=== PATIENT | female | born 1950 | race Caucasian/White ===

== ENCOUNTER → 2021-02-23 | Outpatient (CLI) | payer MEDICARE, MEDICAID ==
[~2021-02-23] MED LIST: AMLO-150 PO; ASPI81TA45 PO; ISOS30TA8 PO; ROSU20TA2 PO
[2021-02-23 12:50] LABS: ALBUMIN 3.8 g/dL (3.4-5.0); ANION GAP 6 mmol/L (5-15); CALCIUM 8.7 mg/dL (8.5-10.1); CHLORIDE 112 mmol/L (98-107)
[2021-02-23 12:53] LABS: ALANINE AMINOTRANSFERASE 30 U/L (12-78); ALKALINE PHOSPHATASE 83 U/L (45-117); BILIRUBIN,TOTAL 0.5 mg/dL (0.2-1.0); CHOL/HDL RATIO 2.6; CHOLESTEROL, TOTAL 143 mg/dL (140-239); HDL CHOL % 39 % (28-40); HDL CHOLESTEROL (DIRECT) 56 mg/dL (40-60); LDL CHOLESTEROL,CALCULATED 63 mg/dL (54-169); LDL/HDL RATIO 1.1 (0.5-3.0); TOTAL PROTEIN 7.2 g/dL (6.4-8.2); TRIGLYCERIDES 121 mg/dL (50-200); VLDL CHOLESTEROL 24 mg/dL (0-25)
== END | disposition home or self-care (01) ==
LOC: LAB 12:03
PROVIDERS: ATTEND Student in an Organized Health Care Education/Training Program
DX: I25.10 Atherosclerotic heart disease of native coronary artery without angina pectoris (principal); E78.5 Hyperlipidemia, unspecified; I10 Essential (primary) hypertension; Z86.79 Personal history of other diseases of the circulatory system
CPT/HCPCS: 36415; 80053; 80061

== ENCOUNTER → 2021-03-27 | Outpatient (CLI) | payer MEDICARE, MEDICAID | END | disposition home or self-care (01) | LOC: CVU 06:41 | PROVIDERS: ATTEND Student in an Organized Health Care Education/Training Program | DX: I08.8 Other rheumatic multiple valve diseases (principal); I25.810 Atherosclerosis of coronary artery bypass graft(s) without angina pectoris; I10 Essential (primary) hypertension; E78.00 Pure hypercholesterolemia, unspecified; Z95.1 Presence of aortocoronary bypass graft | CPT/HCPCS: 93306 ==

== ENCOUNTER 2021-04-13 04:28 | Inpatient (IN) | payer MEDICAID, MEDICARE ==
[2021-04-12 12:34] LABS: BASOPHILS % (AUTO) 1 % (0-1); EOSINOPHILS % (AUTO) 4 % (1-7); LYMPHOCYTES % (AUTO) 27 % (22-44); MEAN CORPUSCULAR HEMOGLOBIN 32.4 pg (27.0-34.8); MEAN CORPUSCULAR HGB CONC 34.3 g/dL (32.4-35.8); MEAN PLATELET VOLUME 10.3 fL (7.4-10.4); MONOCYTES % (AUTO) 6 % (2-9); NEUTROPHILS % (AUTO) 62 % (42-75); PLATELET COUNT 175 x10^3/uL (130-400); RED BLOOD COUNT 4.23 x10^6/uL (3.82-5.3); RED CELL DISTRIBUTION WIDTH 13.2 % (9.6-15.2)
[2021-04-12 12:42] LABS: INTERNATIONAL NORMALIZED RATIO 1.02 (0.93-1.1); PROTHROMBIN TIME 10.9 Seconds (9.6-11.5)
[2021-04-12 12:44] LABS: ALBUMIN 3.8 g/dL (3.4-5.0); ANION GAP 3 mmol/L (5-15); CALCIUM 8.2 mg/dL (8.5-10.1); CHLORIDE 110 mmol/L (98-107)
[2021-04-12 12:48] LABS: ALANINE AMINOTRANSFERASE 23 U/L (12-78); ALKALINE PHOSPHATASE 80 U/L (45-117); BILIRUBIN,TOTAL 0.4 mg/dL (0.2-1.0); CREATININE 0.56 mg/dL (0.55-1.02); TOTAL PROTEIN 7.1 g/dL (6.4-8.2)
[2021-04-12 12:48] LABS: MICROSCOPIC NOT IND
[~2021-04-13] VITALS: Ht 167.6 cm; Wt 70.6 kg
[2021-04-13 04:35] VITALS: BP 147/78
[2021-04-13 04:37] VITALS: BP 135/70
[2021-04-13] MEDS ORDERED: DO NOT GIVE MC SCH (05:00)
[2021-04-13] MEDS ORDERED: METOPROLOL TARTRATE 25 MG TAB PO ONE (05:00)
[2021-04-13] MEDS ORDERED: INSULIN LISPRO 100 UNITS/ML, PEN SQ-INSULIN ONE (05:00)
[2021-04-13] MEDS ORDERED: CHLORHEXIDINE 15 ML UDC MM SCH (05:00)
[2021-04-13] MEDS ORDERED: DO NOT GIVE XX SCH (05:00)
[2021-04-13] MEDS ORDERED: MUPIROCIN OINT 2%, 22GM ONE (05:24)
[2021-04-13] MEDS: MUPIROCIN OINT 2%, 15GM TP SCH ×2 (05:34→18:29)
[2021-04-13] MEDS ORDERED: HEPARIN 1,000 UNITS/ML, 10ML ONE (06:14)
[2021-04-13] MEDS ORDERED: PAPAVERINE 30 MG/ML, 2ML ONE (06:14)
[2021-04-13] MEDS ORDERED: MIDAZOLAM 10MG/2 ML ONE (07:10)
[2021-04-13] MEDS ORDERED: FENTANYL PF 250 MCG/5ML ONE ×4 (07:12→07:13)
[2021-04-13] MEDS ORDERED: DEXMEDETOMIDINE 200 MCG in SODIUM CHLORIDE 0.9% 48 ML IV PRN (07:30)
[2021-04-13] MEDS ORDERED: PHENYLEPHRINE 50 MG in SODIUM CHLORIDE 0.9% 245 ML IV PRN ×2 (07:30→12:30)
[2021-04-13] MEDS ORDERED: REGULAR INSULIN 100 UNITS in SODIUM CHLORIDE 0.9% 99 ML IV PRN ×2 (07:30→12:30)
[2021-04-13] MEDS ORDERED: ALBUMIN HUMAN 5% 500 ML IV PRN ×2 (07:30→12:30)
[2021-04-13] MEDS ORDERED: MANNITOL PMX 20% 500 ML IVPB PRN (07:30)
[2021-04-13] MEDS ORDERED: EPINEPHRINE 5 MG in SODIUM CHLORIDE 0.9% 245 ML IV PRN ×2 (07:30→12:30)
[2021-04-13] MEDS ORDERED: POTASSIUM CHLORIDE 80 MEQ, SODIUM BICARBONATE 8.4% 10 MEQ, MAGNESIUM SULFATE 0.5 GM, LI... IV PRN (07:30)
[2021-04-13] MEDS: SODIUM CHLORIDE FLUSH 10ML SYR IVF SCH ×3 (09:00→20:16)
[2021-04-13] MEDS ORDERED: ROCURONIUM 10MG/ML,5ML ONE ×2 (09:53)
[2021-04-13] MEDS ORDERED: PROTAMINE SULFATE 10 MG/ML, 25ML ONE (09:53)
[2021-04-13] MEDS ORDERED: AMINOCAPROIC ACID 250 MG/ML, 20ML ONE ×2 (09:53)
[2021-04-13] MEDS ORDERED: PROPOFOL 10 MG/ML, 20ML ONE (09:53)
[2021-04-13] MEDS ORDERED: CALCIUM CHLORIDE 10%, 10ML SYR ONE (12:08)
[2021-04-13] MEDS ORDERED: OXYcodone IR 5MG TABLET PO PRN (12:30)
[2021-04-13] MEDS ORDERED: DEXMEDETOMIDINE 400 MCG in SODIUM CHLORIDE 0.9% 96 ML IV PRN (12:30)
[2021-04-13] MEDS ORDERED: FENTANYL PF 100 MCG/2ML IV PRN (12:30)
[2021-04-13] MEDS ORDERED: DOBUTAMINE 250 MG in SODIUM CHLORIDE 0.9% 230 ML IV PRN (12:30)
[2021-04-13] MEDS ORDERED: DEXTROSE 50%, 50ML SYRINGE IVPush PRN (12:30)
[2021-04-13] MEDS ORDERED: SODIUM CHLORIDE 0.9% 1,000 ML IV SCH (12:30)
[2021-04-13] MEDS ORDERED: SODIUM BICARB 8.4%, 50ML SYRINGE IV PRN (12:30)
[2021-04-13] MEDS ORDERED: CALCIUM CHLORIDE 13.6 MEQ in SODIUM CHLORIDE 0.9% 100 ML IVPB PRN (12:30)
[2021-04-13] MEDS ORDERED: DEXTROSE 4 GM TAB.CHEW PO PRN (12:30)
[2021-04-13] MEDS: MAGNESIUM SULFATE 1 GM in SODIUM CHLORIDE 0.9% 100 ML IVPB SCH (12:30)
[2021-04-13] MEDS ORDERED: NITROGLYCERIN/D5W PMX 250 ML IV PRN (12:30)
[2021-04-13] MEDS ORDERED: INSULIN REGULAR 100 UNITS/ML, 3ML VIAL IVPush PRN (12:30)
[2021-04-13] MEDS: ACETAMINOPHEN 500 MG TABLET PO SCH ×2 (12:30→17:23)
[2021-04-13] MEDS: KSCALE TO 4.5 IV SCH ×2 (12:30→18:29)
[2021-04-13] MEDS ORDERED: HYDROmorphone 1 MG/ML, 1ML INJ IV PRN (12:30)
[2021-04-13] MEDS ORDERED: PROMETHAZINE 25 MG SUPP PR PRN (12:30)
[2021-04-13] MEDS ORDERED: GLUCAGON 1 MG IM PRN (12:30)
[2021-04-13] MEDS ORDERED: VASOPRESSIN 20 UNIT in SODIUM CHLORIDE 0.9% 99 ML IV PRN (12:30)
[2021-04-13] MEDS ORDERED: PROCHLORPERAZINE 5 MG/ML, 2ML IVPush PRN (12:30)
[2021-04-13] MEDS ORDERED: MIDAZOLAM 1 MG/ML, 2ML IV PRN (12:30)
[2021-04-13] MEDS ORDERED: MORPHINE SULFATE 4 MG/ML, 1ML ONE (12:38)
[2021-04-13] MEDS: morphine SULFATE 10 MG/ML, 1ML IVPush PRN ×2 (12:40→20:37)
[2021-04-13] MEDS ORDERED: HEPARIN 1,000 UNITS/ML, 30ML ONE ×2 (12:45→12:47)
[2021-04-13] MEDS ORDERED: SODIUM BICARB 8.4%, 50ML SYRINGE ONE (12:45)
[2021-04-13] MEDS ORDERED: LIDOCAINE 2%, 20ML ONE (12:46)
[2021-04-13] MEDS ORDERED: MANNITOL 0.25 GM/ML, 50ML ONE (12:46)
[2021-04-13] MEDS ORDERED: MAGNESIUM SULFATE PMX 2GM/50ML 50 ML ONE (12:46)
[2021-04-13] MEDS ORDERED: ALBUMIN HUMAN 25% 100 ML ONE (12:46)
[2021-04-13] MEDS ORDERED: SODIUM BICARBONATE 1 MEQ/ML, 50ML VIAL ONE (12:47)
[2021-04-13 12:57] LABS: GLUCOSE BY BLOOD GAS ANALYZER 112 mg/dL (70-110); HEMOGLOBIN BY BLOOD GAS ANALYZ 11.3 g/dL (14.0-18.0); POTASSIUM BY BLOOD GAS ANALYZR 4.2 mmol/L (3.6-5.5)
[2021-04-13 13:14] LABS: INTERNATIONAL NORMALIZED RATIO 1.29 (0.93-1.1); PROTHROMBIN TIME 13.6 Seconds (9.6-11.5)
[2021-04-13] MEDS: LACTATED RINGERS 500 ML IV PRN ×4 (13:30→19:48)
[2021-04-13] MEDS: INSULIN LISPRO 100 UNITS/ML, PEN SQ-INSULIN SCH ×2 (15:55→19:41)
[2021-04-13] MEDS ORDERED: ALBUTEROL SULFATE 2.5 MG/3 ML NPPB PRN (16:00)
[2021-04-13] MEDS: ONDANSETRON 2MG/ML, 2ML IVPush PRN ×2 (16:07→21:21)
[2021-04-13] MEDS: OXYcodone IR 5MG TABLET PO PRN ×2 (17:23→22:50)
[2021-04-13] MEDS: CEFUROXIME 1.5 GM in SODIUM CHLORIDE 0.9% 50 ML IVPB SCH (19:37)
[2021-04-13] MEDS ORDERED: VANCOMYCIN 1,000 MG in SODIUM CHLORIDE 0.9% 250 ML IVPB SCH (20:00)
[2021-04-13] MEDS: VANCOMYCIN 1,000 MG in SODIUM CHLORIDE 0.9% 100 ML IVPB SCH (20:14)
[2021-04-13] MEDS: ATORVASTATIN 40 MG TABLET PO SCH (20:21)
[2021-04-13] MEDS: SENNA/DOCUSATE TABLET PO SCH (20:28)
[2021-04-13] MEDS: DOCUSATE 100 MG CAPSULE PO SCH (20:28)
[2021-04-13] MEDS ORDERED: DIPHENHYDRAMINE 25 MG CAPSULE PO PRN (21:00)
[2021-04-14] MEDS: ACETAMINOPHEN 500 MG TABLET PO SCH ×4 (00:14→16:25)
[2021-04-14] MEDS: INSULIN LISPRO 100 UNITS/ML, PEN SQ-INSULIN SCH ×6 (00:14→20:00)
[2021-04-14] MEDS: KSCALE TO 4.5 IV SCH ×2 (00:30→05:37)
[2021-04-14] MEDS: OXYcodone IR 5MG TABLET PO PRN ×6 (02:31→19:36)
[2021-04-14 04:57] LABS: MEAN CORPUSCULAR HEMOGLOBIN 31.5 pg (27.0-34.8); MEAN CORPUSCULAR HGB CONC 33.2 g/dL (32.4-35.8); MEAN PLATELET VOLUME 10.7 fL (7.4-10.4); PLATELET COUNT 120 x10^3/uL (130-400); RED BLOOD COUNT 2.84 x10^6/uL (3.82-5.3); RED CELL DISTRIBUTION WIDTH 13.2 % (9.6-15.2)
[2021-04-14 04:59] LABS: ANION GAP 8 mmol/L (5-15); CALCIUM 8.1 mg/dL (8.5-10.1); CHLORIDE 108 mmol/L (98-107)
[2021-04-14 05:00] LABS: CREATININE 0.67 mg/dL (0.55-1.02)
[2021-04-14] MEDS: MUPIROCIN OINT 2%, 15GM TP SCH (05:36)
[2021-04-14] MEDS: MUPIROCIN OINT 2%, 15GM NAS SCH ×2 (05:36→16:26)
[2021-04-14 05:57] LABS: <PLATELET ESTIMATE> DECREASED; <RBC MORPHOLOGY> NORMAL; BAND#(MANUAL) 1.21 x10^3/uL; BANDS%(MANUAL) 8 % (0-7); LARGE PLATELETS 1+; LYMPH#(MANUAL) 1.36 x10^3/uL (1-3.4); LYMPHS% (MANUAL) 9 % (22-44); METAMYELOCYTES# (MANUAL) 0.15 x10^3/uL (0-0); METAMYELOCYTES% (MANUAL) 1 % (0-1); MONOS#(MANUAL) 1.06 x10^3/uL (0.3-2.7); MONOS% (MANUAL) 7 % (2-9); SEG#(MANUAL) 11.33 x10^3/uL (1.8-6.8); SEGS% (MANUAL) 75 % (42-75)
[2021-04-14] MEDS ORDERED: VANCOMYCIN 1,100 MG in SODIUM CHLORIDE 0.9% 250 ML IV PRN (07:30)
[2021-04-14] MEDS ORDERED: CEFUROXIME 1.5 GM in SODIUM CHLORIDE 0.9% 50 ML IVPB PRN (07:30)
[2021-04-14] MEDS: SENNA/DOCUSATE TABLET PO SCH ×2 (08:23→19:37)
[2021-04-14] MEDS: CHLORHEXIDINE 15 ML UDC MM SCH ×2 (08:23→20:37)
[2021-04-14] MEDS: POLYETHYLENE GLYCOL 17 GM PACKET PO SCH (08:23)
[2021-04-14] MEDS: CLOPIDOGREL 75 MG TABLET PO SCH (08:23)
[2021-04-14] MEDS: CEFUROXIME 1.5 GM in SODIUM CHLORIDE 0.9% 50 ML IVPB SCH (08:23)
[2021-04-14] MEDS: METOPROLOL TARTRATE 25 MG TAB PO/NG SCH ×2 (08:24→20:09)
[2021-04-14] MEDS: ASPIRIN 81 MG TABLET EC PO SCH (08:24)
[2021-04-14] MEDS: OMEPRAZOLE 20 MG CAPSULE.DR PO SCH (08:24)
[2021-04-14] MEDS: DOCUSATE 100 MG CAPSULE PO SCH ×2 (08:24→19:37)
[2021-04-14] MEDS: SODIUM CHLORIDE FLUSH 10ML SYR IVF SCH ×4 (09:00→20:37)
[2021-04-14] MEDS: VANCOMYCIN 1,000 MG in SODIUM CHLORIDE 0.9% 100 ML IVPB SCH (09:10)
[2021-04-14] MEDS: ONDANSETRON 2MG/ML, 2ML IVPush PRN (09:10)
[2021-04-14] MEDS: MAGNESIUM SULFATE 1 GM in SODIUM CHLORIDE 0.9% 100 ML IVPB SCH (12:05)
[2021-04-14] MEDS ORDERED: FUROSEMIDE 20 MG/2 ML IV ONE (13:30)
[2021-04-14] MEDS: ATORVASTATIN 40 MG TABLET PO SCH (19:36)
[2021-04-15] MEDS ORDERED: CALCIUM CHLORIDE 13.6 MEQ in SODIUM CHLORIDE 0.9% 100 ML IV ONE
[2021-04-15] MEDS: OXYcodone IR 5MG TABLET PO PRN ×5 (00:13→23:09)
[2021-04-15] MEDS: ACETAMINOPHEN 500 MG TABLET PO SCH ×4 (00:13→18:37)
[2021-04-15 01:17] VITALS: BP 114/45
[2021-04-15 01:38] VITALS: BP 112/40
[2021-04-15 03:50] VITALS: BP 102/37
[2021-04-15] MEDS: INSULIN LISPRO 100 UNITS/ML, PEN SQ-INSULIN SCH ×5 (04:00→23:18)
[2021-04-15 04:19] LABS: MEAN CORPUSCULAR HEMOGLOBIN 31.7 pg (27.0-34.8); MEAN CORPUSCULAR HGB CONC 33.7 g/dL (32.4-35.8); MEAN PLATELET VOLUME 11.2 fL (7.4-10.4); PLATELET COUNT 92 x10^3/uL (130-400); RED BLOOD COUNT 3.09 x10^6/uL (3.82-5.3); RED CELL DISTRIBUTION WIDTH 13.5 % (9.6-15.2)
[2021-04-15 04:30] LABS: ANION GAP 5 mmol/L (5-15); CALCIUM 9.2 mg/dL (8.5-10.1); CHLORIDE 107 mmol/L (98-107); CREATININE 0.51 mg/dL (0.55-1.02)
[2021-04-15 04:46] VITALS: BP 105/36
[2021-04-15 05:19] LABS: BAND#(MANUAL) 1.59 x10^3/uL; BANDS%(MANUAL) 9 % (0-7); LYMPH#(MANUAL) 1.95 x10^3/uL (1-3.4); LYMPHS% (MANUAL) 11 % (22-44); MONOS#(MANUAL) 0.35 x10^3/uL (0.3-2.7); MONOS% (MANUAL) 2 % (2-9); SEG#(MANUAL) 13.81 x10^3/uL (1.8-6.8); SEGS% (MANUAL) 78 % (42-75)
[2021-04-15 05:20] LABS: <RBC MORPHOLOGY> NORMAL
[2021-04-15 05:26] LABS: <PLATELET ESTIMATE> DECREASED; LARGE PLATELETS 1+
[2021-04-15] MEDS: MUPIROCIN OINT 2%, 15GM NAS SCH ×2 (06:00→23:09)
[2021-04-15] MEDS: CLOPIDOGREL 75 MG TABLET PO SCH (08:26)
[2021-04-15] MEDS: ASPIRIN 81 MG TABLET EC PO SCH (08:26)
[2021-04-15] MEDS: ENOXAPARIN 40 MG/0.4 ML SQ SCH (08:26)
[2021-04-15] MEDS: POLYETHYLENE GLYCOL 17 GM PACKET PO SCH (08:26)
[2021-04-15] MEDS: OMEPRAZOLE 20 MG CAPSULE.DR PO SCH (08:26)
[2021-04-15] MEDS: DOCUSATE 100 MG CAPSULE PO SCH ×2 (08:26→23:07)
[2021-04-15] MEDS: SENNA/DOCUSATE TABLET PO SCH ×2 (08:26→23:07)
[2021-04-15] MEDS: CHLORHEXIDINE 15 ML UDC MM SCH ×2 (08:27→23:09)
[2021-04-15] MEDS: SODIUM CHLORIDE FLUSH 10ML SYR IVF SCH ×4 (08:27→23:09)
[2021-04-15] MEDS: METOPROLOL TARTRATE 25 MG TAB PO/NG SCH ×2 (09:00→23:08)
[2021-04-15] MEDS ORDERED: BISACODYL 10 MG SUPP PR PRN (12:30)
[2021-04-15] MEDS: MAGNESIUM SULFATE 1 GM in SODIUM CHLORIDE 0.9% 100 ML IVPB SCH (12:51)
[2021-04-15] MEDS ORDERED: FUROSEMIDE 20 MG/2 ML IV SCH (13:00)
[2021-04-15] MEDS: ONDANSETRON 2MG/ML, 2ML IVPush PRN (13:04)
[2021-04-15 23:02] VITALS: BP 94/59
[2021-04-15] MEDS: ATORVASTATIN 80 MG TABLET PO SCH (23:07)
[2021-04-15] MEDS: ATORVASTATIN 40 MG TABLET PO SCH (23:08)
[2021-04-16 00:19] VITALS: BP 109/67
[2021-04-16] MEDS: ACETAMINOPHEN 500 MG TABLET PO SCH ×4 (01:18→18:19)
[2021-04-16 05:06] LABS: BASOPHILS % (AUTO) 0 % (0-1); EOSINOPHILS % (AUTO) 2 % (1-7); LYMPHOCYTES % (AUTO) 9 % (22-44); MEAN CORPUSCULAR HEMOGLOBIN 31.5 pg (27.0-34.8); MEAN CORPUSCULAR HGB CONC 33.6 g/dL (32.4-35.8); MEAN PLATELET VOLUME 10.4 fL (7.4-10.4); MONOCYTES % (AUTO) 5 % (2-9); NEUTROPHILS % (AUTO) 85 % (42-75); PLATELET COUNT 97 x10^3/uL (130-400); RED BLOOD COUNT 2.92 x10^6/uL (3.82-5.3); RED CELL DISTRIBUTION WIDTH 13.4 % (9.6-15.2)
[2021-04-16 05:17] LABS: CALCIUM 8.7 mg/dL (8.5-10.1); CHLORIDE 107 mmol/L (98-107); CREATININE 0.52 mg/dL (0.55-1.02)
[2021-04-16] MEDS: OXYcodone IR 5MG TABLET PO PRN ×2 (05:36→22:28)
[2021-04-16] MEDS: MUPIROCIN OINT 2%, 15GM NAS SCH ×2 (05:36→18:19)
[2021-04-16 05:46] LABS: ANION GAP 0 mmol/L (5-15)
[2021-04-16 07:43] VITALS: BP 97/61
[2021-04-16] MEDS: INSULIN LISPRO 100 UNITS/ML, PEN SQ-INSULIN SCH ×3 (08:11→17:12)
[2021-04-16] MEDS: ENOXAPARIN 40 MG/0.4 ML SQ SCH (08:40)
[2021-04-16] MEDS: OMEPRAZOLE 20 MG CAPSULE.DR PO SCH (08:40)
[2021-04-16] MEDS: ASPIRIN 81 MG TABLET EC PO SCH (08:40)
[2021-04-16] MEDS: SENNA/DOCUSATE TABLET PO SCH ×2 (08:42→22:28)
[2021-04-16] MEDS: CLOPIDOGREL 75 MG TABLET PO SCH (08:42)
[2021-04-16] MEDS: FUROSEMIDE 20 MG/2 ML IV SCH (08:42)
[2021-04-16] MEDS: POLYETHYLENE GLYCOL 17 GM PACKET PO SCH (08:43)
[2021-04-16] MEDS: SODIUM CHLORIDE FLUSH 10ML SYR IVF SCH ×4 (08:43→21:55)
[2021-04-16] MEDS: METOPROLOL TARTRATE 25 MG TAB PO/NG SCH ×2 (08:43→21:58)
[2021-04-16] MEDS: DOCUSATE 100 MG CAPSULE PO SCH ×2 (08:47→22:27)
[2021-04-16] MEDS ORDERED: FILTER 0.22 MICRON FOR AMIODARONE IV PRN (10:30)
[2021-04-16] MEDS ORDERED: AMIODARONE 150 MG in DEXTROSE 5% 100 ML IV ONE (10:30)
[2021-04-16 10:57] VITALS: BP 97/63
[2021-04-16] MEDS: AMIODARONE 450 MG in DEXTROSE 5% 241 ML IV PRN ×2 (10:58→19:36)
[2021-04-16 14:40] VITALS: BP 94/58
[2021-04-16 19:50] VITALS: BP 98/59
[2021-04-16] MEDS: ATORVASTATIN 40 MG TABLET PO SCH (22:00)
[2021-04-16] MEDS: ATORVASTATIN 80 MG TABLET PO SCH (22:28)
[2021-04-17] MEDS: ACETAMINOPHEN 500 MG TABLET PO SCH ×4 (00:53→17:50)
[2021-04-17 01:47] VITALS: BP 94/60
[2021-04-17 04:43] LABS: BASOPHILS % (AUTO) 0 % (0-1); EOSINOPHILS % (AUTO) 3 % (1-7); LYMPHOCYTES % (AUTO) 12 % (22-44); MEAN CORPUSCULAR HEMOGLOBIN 32.1 pg (27.0-34.8); MEAN CORPUSCULAR HGB CONC 34.1 g/dL (32.4-35.8); MEAN PLATELET VOLUME 10.1 fL (7.4-10.4); MONOCYTES % (AUTO) 7 % (2-9); NEUTROPHILS % (AUTO) 78 % (42-75); PLATELET COUNT 138 x10^3/uL (130-400); RED BLOOD COUNT 2.84 x10^6/uL (3.82-5.3); RED CELL DISTRIBUTION WIDTH 13.3 % (9.6-15.2)
[2021-04-17 04:47] LABS: ANION GAP 5 mmol/L (5-15); CALCIUM 8.5 mg/dL (8.5-10.1); CHLORIDE 105 mmol/L (98-107)
[2021-04-17] MEDS: MUPIROCIN OINT 2%, 15GM NAS SCH ×2 (05:51→17:51)
[2021-04-17 08:21] VITALS: BP 111/66
[2021-04-17] MEDS: FUROSEMIDE 20 MG/2 ML IV SCH (08:21)
[2021-04-17] MEDS: METOPROLOL TARTRATE 25 MG TAB PO/NG SCH ×2 (08:22→21:55)
[2021-04-17] MEDS: SENNA/DOCUSATE TABLET PO SCH ×2 (08:22→21:55)
[2021-04-17] MEDS: ENOXAPARIN 40 MG/0.4 ML SQ SCH (08:22)
[2021-04-17] MEDS: ASPIRIN 81 MG TABLET EC PO SCH (08:22)
[2021-04-17] MEDS: CLOPIDOGREL 75 MG TABLET PO SCH (08:23)
[2021-04-17] MEDS: OMEPRAZOLE 20 MG CAPSULE.DR PO SCH (08:23)
[2021-04-17] MEDS: POLYETHYLENE GLYCOL 17 GM PACKET PO SCH (08:24)
[2021-04-17] MEDS: DOCUSATE 100 MG CAPSULE PO SCH ×2 (08:24→21:55)
[2021-04-17] MEDS: AMIODARONE 450 MG in DEXTROSE 5% 241 ML IV PRN (08:25)
[2021-04-17] MEDS: SODIUM CHLORIDE FLUSH 10ML SYR IVF SCH ×4 (08:40→22:27)
[2021-04-17] MEDS: AMIODARONE 200 MG TABLET PO SCH ×2 (10:16→22:24)
[2021-04-17 13:50] VITALS: BP 96/60
[2021-04-17] MEDS: OXYcodone IR 5MG TABLET PO PRN (14:27)
[2021-04-17 19:24] VITALS: BP 103/52
[2021-04-17] MEDS: ATORVASTATIN 40 MG TABLET PO SCH (21:00)
[2021-04-17] MEDS: ATORVASTATIN 80 MG TABLET PO SCH (22:24)
[2021-04-18 00:30] VITALS: BP 112/68
[2021-04-18] MEDS: ACETAMINOPHEN 500 MG TABLET PO SCH ×2 (00:30→06:39)
[2021-04-18] MEDS: ONDANSETRON 2MG/ML, 2ML IVPush PRN (02:06)
[2021-04-18 05:38] LABS: BASOPHILS % (AUTO) 1 % (0-1); EOSINOPHILS % (AUTO) 3 % (1-7); LYMPHOCYTES % (AUTO) 13 % (22-44); MEAN CORPUSCULAR HEMOGLOBIN 31.9 pg (27.0-34.8); MEAN PLATELET VOLUME 9.7 fL (7.4-10.4); MONOCYTES % (AUTO) 7 % (2-9); NEUTROPHILS % (AUTO) 76 % (42-75); PLATELET COUNT 180 x10^3/uL (130-400); RED BLOOD COUNT 2.94 x10^6/uL (3.82-5.3); RED CELL DISTRIBUTION WIDTH 13.2 % (9.6-15.2)
[2021-04-18 05:45] LABS: ANION GAP 3 mmol/L (5-15); CALCIUM 8.5 mg/dL (8.5-10.1); CHLORIDE 102 mmol/L (98-107); CREATININE 0.38 mg/dL (0.55-1.02)
[2021-04-18] MEDS: MUPIROCIN OINT 2%, 15GM NAS SCH ×2 (06:39→17:27)
[2021-04-18] MEDS: OMEPRAZOLE 20 MG CAPSULE.DR PO SCH (06:47)
[2021-04-18 08:15] VITALS: BP 125/71
[2021-04-18] MEDS: DOCUSATE 100 MG CAPSULE PO SCH ×2 (08:23→21:01)
[2021-04-18] MEDS: AMIODARONE 200 MG TABLET PO SCH ×2 (08:23→21:01)
[2021-04-18] MEDS: CLOPIDOGREL 75 MG TABLET PO SCH (08:24)
[2021-04-18] MEDS: POLYETHYLENE GLYCOL 17 GM PACKET PO SCH (08:24)
[2021-04-18] MEDS: ASPIRIN 81 MG TABLET EC PO SCH (08:24)
[2021-04-18] MEDS: FUROSEMIDE 20 MG/2 ML IV SCH (08:25)
[2021-04-18] MEDS: SODIUM CHLORIDE FLUSH 10ML SYR IVF SCH ×4 (08:25→21:08)
[2021-04-18] MEDS: ENOXAPARIN 40 MG/0.4 ML SQ SCH (08:26)
[2021-04-18] MEDS: METOPROLOL TARTRATE 25 MG TAB PO/NG SCH ×2 (08:26→21:07)
[2021-04-18] MEDS: SENNA/DOCUSATE TABLET PO SCH ×2 (08:26→21:00)
[2021-04-18 14:34] VITALS: BP 95/56
[2021-04-18] MEDS: ATORVASTATIN 80 MG TABLET PO SCH (21:01)
[2021-04-18 21:05] VITALS: BP 130/65
[2021-04-18] MEDS: ATORVASTATIN 40 MG TABLET PO SCH (21:30)
[2021-04-19 01:27] VITALS: BP 122/70
[2021-04-19 05:02] LABS: BASOPHILS % (AUTO) 1 % (0-1); EOSINOPHILS % (AUTO) 4 % (1-7); LYMPHOCYTES % (AUTO) 17 % (22-44); MEAN CORPUSCULAR HEMOGLOBIN 32.1 pg (27.0-34.8); MEAN CORPUSCULAR HGB CONC 34.3 g/dL (32.4-35.8); MEAN PLATELET VOLUME 8.9 fL (7.4-10.4); MONOCYTES % (AUTO) 10 % (2-9); NEUTROPHILS % (AUTO) 68 % (42-75); PLATELET COUNT 236 x10^3/uL (130-400); RED BLOOD COUNT 2.99 x10^6/uL (3.82-5.3); RED CELL DISTRIBUTION WIDTH 12.9 % (9.6-15.2)
[2021-04-19 05:10] LABS: ANION GAP 6 mmol/L (5-15); CALCIUM 8.4 mg/dL (8.5-10.1); CHLORIDE 102 mmol/L (98-107); CREATININE 0.49 mg/dL (0.55-1.02)
[2021-04-19] MEDS: OMEPRAZOLE 20 MG CAPSULE.DR PO SCH (06:15)
[2021-04-19 07:28] VITALS: BP 130/68
[2021-04-19] MEDS ORDERED: POTASSIUM CHLORIDE 20 MEQ TAB.ER.PRT PO ONE (08:30)
[2021-04-19] MEDS ORDERED: CLOP75TA PO (08:46)
[2021-04-19] MEDS ORDERED: POTA10TA5 PO (08:46)
[2021-04-19] MEDS ORDERED: METO25TA35 PO/NG (08:46)
[2021-04-19] MEDS ORDERED: AMIO200T42 PO (08:46)
[2021-04-19] MEDS ORDERED: OXYC5TAB98 PO (08:46)
[2021-04-19] MEDS ORDERED: FURO40TA6 PO (08:46)
[2021-04-19] MEDS: SENNA/DOCUSATE TABLET PO SCH (08:47)
[2021-04-19] MEDS: POLYETHYLENE GLYCOL 17 GM PACKET PO SCH (08:47)
[2021-04-19 08:51] VITALS: BP 124/72
[2021-04-19] MEDS: AMIODARONE 200 MG TABLET PO SCH (08:57)
[2021-04-19] MEDS: ASPIRIN 81 MG TABLET EC PO SCH (08:57)
[2021-04-19] MEDS: CLOPIDOGREL 75 MG TABLET PO SCH (08:57)
[2021-04-19] MEDS: ENOXAPARIN 40 MG/0.4 ML SQ SCH (08:58)
[2021-04-19] MEDS: METOPROLOL TARTRATE 25 MG TAB PO/NG SCH (08:58)
[2021-04-19] MEDS: DOCUSATE 100 MG CAPSULE PO SCH (09:00)
[2021-04-19] MEDS: SODIUM CHLORIDE FLUSH 10ML SYR IVF SCH ×2 (09:00→09:10)
[2021-04-19 10:20] VITALS: BP 115/60
[2021-04-19] MEDS: FUROSEMIDE 20 MG/2 ML IV SCH (10:21)
[2021-04-19 14:09] VITALS: BP 121/70
== END 2021-04-19 17:02 | disposition home or self-care (01) | DRG 235 ==
LOC: 5SO 04:28 → CCU 09:30 → 5SO 04-15 16:49 → CCU 04-15 16:50 → 5SO 04-15 17:49
PROVIDERS: ADMIT Thoracic Surgery (Cardiothoracic Vascular Surgery); ATTEND Thoracic Surgery (Cardiothoracic Vascular Surgery)
PROC: 06BP4ZZ Excision of Right Saphenous Vein, Percutaneous Endoscopic Approach (ICD-10-PCS; 2021-04-13)
PROC: 021009W Bypass Coronary Artery, One Artery from Aorta with Autologous Venous Tissue, Open Approach (ICD-10-PCS; 2021-04-13)
PROC: B246ZZ4 Ultrasonography of Right and Left Heart, Transesophageal (ICD-10-PCS; 2021-04-13)
PROC: 5A1221Z Performance of Cardiac Output, Continuous (ICD-10-PCS; 2021-04-13)
PROC: 02100Z9 Bypass Coronary Artery, One Artery from Left Internal Mammary, Open Approach (ICD-10-PCS; principal; 2021-04-13 07:30)
PROC: 30233N1 Transfusion of Nonautologous Red Blood Cells into Peripheral Vein, Percutaneous Approach (ICD-10-PCS; 2021-04-15)
DX: I25.10 Atherosclerotic heart disease of native coronary artery without angina pectoris (principal); I50.33 Acute on chronic diastolic (congestive) heart failure; D62 Acute posthemorrhagic anemia; I11.0 Hypertensive heart disease with heart failure; R53.81 Other malaise; I48.91 Unspecified atrial fibrillation; F17.210 Nicotine dependence, cigarettes, uncomplicated
CPT/HCPCS: 36415; 36600; 71045; 71046; 80048; 80053; 81003; 82330; 82800; 82803; 82810; 82947; 82962; 83036; 83735; 84132; 84295; 85014; 85018; 85025; 85049; 85347; 85610; 85730; 86850; 86900; 86923; 87081; 93005; 93312; 93321; 93325; 93880; 93970; 94002; 94640; G0378; J0171; J0697; J1644; J1650; J1815; J2250; J2405; J2704; J2720; J3010; J3370; J3475; J3480; J7060; J7120; J7613; P9045; P9047; U0005; C1760; J0282; J1940; J2150; J2270; J2370; J2440; J7050; P9016; U0003